=== PATIENT | male | born 1940 | race Caucasian/White ===

== ENCOUNTER 2016-12-19 11:31 | Emergency (ER) | payer OTHER, BC ==
[~2016-12-19] VITALS: Ht 170.2 cm; Wt 95.9 kg
[~2016-12-19 11:31] MED LIST: ADVIL200 MG PO; ALTACE10 MG PO; Altace PO; CEFTIN250 MG PO; CELEBREX200 MG PO; CO Q-10200 MG PO; COMBIVENT RESPIM4 GM IH; COZAAR100 MG PO; Cozaar PO; FISH OIL 1,001000 M2 PO; HYDROCHLOROTHIA25 MG PO; Hydrodiuril,Oretic,E PO; IMDUR30 MG PO; LIPITOR80 MG PO; LO-DOSE ASPIRIN81 M2 PO; LOVAZA1 GM PO; LOW DOSE ASPIRI81 M2 PO; Lipitor PO; METOPROLOL SUC100 MG PO; OXYGEN MC; PLAVIX75 MG PO; PROTONIX40 MG PO; Plavix PO; Protonix PO; TOPROL XL100 MG PO; TOPROL XL50 MG PO; Toprol XL PO; VITAMIN C1000 MG PO; ZETIA10 MG PO; Zetia PO; Zithromax PO
[2016-12-19 12:22] LABS: HEMATOCRIT 38.6 % (38.0-50.0); MCH 32.3 PG (29.0-34.0); MCHC 33.4 G/DL (30.0-36.0); MCV 96.5 FL (86-99); MEAN PLAT.VOLUME 12.3 uM^3 (9.0-12.4); PLATELET COUNT 62 K/uL (156-360); RBC DIS.WIDTH-SD 48.7 % (39-53); WHITE BLOOD COUNT 6.5 K/uL (4.1-10.2)
[2016-12-19 12:31] LABS: CHLORIDE 98 mEq/L (99-109); POTASSIUM 3.9 mEq/L (3.7-5.4); SODIUM 138 mEq/L (136-147)
[2016-12-19 12:33] LABS: GLUCOSE 129 mg/dL (70-99)
[2016-12-19 12:35] LABS: ANION GAP 12 MEQ/L (2-14)
[2016-12-19 12:37] LABS: GFR ESTIMATE (CALCULATED) > 59 mL/min/
[2016-12-19 12:38] LABS: UREA NITROGEN (BUN) 20 mg/dL (9-23)
[2016-12-19 12:43] LABS: TROP-I INTERPRETATION NEGATIVE; TROPONIN-I < 0.01 ng/mL (0.0-0.30)
[2016-12-19] MEDS ORDERED: FLEXERIL10 MG PO (15:21)
[2016-12-19] MEDS ORDERED: PERCOCET 5/31 TABLET PO (15:21)
[2016-12-19 15:45] VITALS: BP 162/92
== END 2016-12-19 15:50 | disposition home or self-care (01) ==
LOC: EME 11:31
DX: R07.89 Other chest pain (principal); I10 Essential (primary) hypertension; Z95.1 Presence of aortocoronary bypass graft; Z87.891 Personal history of nicotine dependence; Z79.82 Long term (current) use of aspirin
CPT/HCPCS: 71020; 71275; 80048; 84484; 85027; 93005; 99281; 99285; J2270; J7030